=== PATIENT | male | born 1975 | race American Indian/Alaskan Native ===

== ENCOUNTER 2019-01-05 10:08 | Emergency (ER) | payer BC, OTHER ==
[2019-01-05 10:15] VITALS: BP 139/88
--- NOTE | 2019-01-05 11:23 | Emergency Department Report ---
HPI - General Chief Complaint: Sore Throat Time Seen by Provider: 01/05/19 11:07 - HPI HPI: 43-year-old male presents to the emergency department with the complaint of a sore throat, hoarse voice for the past 2-3 days. The patient is also here for a blood pressure check as he said that he checked his blood pressure in some pharmacy or department store recently and it read his blood pressure as high. He has not taken anything for her symptoms prior to presentation. No past medical history. He has a tobacco smoker but denies any illicit drug use. Patient says that when he wakes him from sleep he feels a lot of sinus congestion. No fever. No cough or shortness of breath. ED Past Medical Hx - Past Medical History Hx Asthma: Yes Additional medical history: c-spine herniation, lower back problems - Surgical History Hx Appendectomy: Yes Additional Surgical History: right foot surgery - Social History Smoking Status: Current Every Day Smoker Substance Use Type: None - Medications Home Medications: Home Medications Medication Instructions Recorded Confirmed Last Taken Type Amoxicillin 500 mg PO TID #30 tablet 06/14/14 Unknown Rx Ibuprofen [Motrin] 600 mg PO Q8H PRN #30 tablet 07/01/14 Unknown Rx Prednisone [Prednisone 10 mg 10 mg PO .TAPER #1 tab.ds.pk 07/01/14 Unknown Rx (6-Day Pack, 21 Tabs)] Promethazine /Codeine 5 ml PO Q6H PRN #90 ml 07/01/14 Unknown Rx [Phenergan/Codeine 6.25-10 mg/5 ml] Acetaminophen/Codeine [Tylenol 1 tab PO Q6H PRN #15 tab 05/06/15 Unknown Rx /Codeine # 3 tab] Penicillin Vk [Veetids TAB] 500 mg PO Q8H #30 tablet 05/06/15 Unknown Rx Ibuprofen [Motrin 800 MG tab] 800 mg PO Q8HR PRN #30 tablet 05/15/16 Unknown Rx Ondansetron [Zofran TAB] 4 mg PO Q8HR PRN #8 tablet 05/15/16 Unknown Rx Fluticasone [Flonase] 1 spray NS QDAY #1 bottle 01/05/19 Unknown Rx Loratadine [Claritin] 10 mg PO DAILY #15 tablet 01/05/19 Unknown Rx ED Review of Systems ROS: Stated complaint: SORE THROAT/BP CHECK Other details as noted in HPI Comment: All other systems reviewed and negative Constitutional: denies: chills, fever ENT: throat pain. denies: ear pain Respiratory: denies: cough, shortness of breath Cardiovascular: denies: chest pain, palpitations Skin: denies: rash, lesions Neurological: denies: headache, weakness Physical Exam - Physical Exam Vital Signs: Vital Signs 01/05/19 10:14 Temperature 98.3 F Pulse Rate 80 Respiratory 16 Rate Blood Pressure 139/88 O2 Sat by Pulse 100 Oximetry Physical Exam: GENERAL: The patient is well-developed well-nourished. HENT: Normocephalic. Atraumatic. Patient has moist mucous membranes. There is no tonsillar hypertrophy, erythema or exudates. Posterior pharynx is hypervascular with some postnasal drip seen. Boggy nasal mucosa. EYES: Extraocular motions are intact. NECK: Supple. Trachea is midline. CHEST/LUNGS: Clear to auscultation. There is no respiratory distress noted. HEART/CARDIOVASCULAR: Regular. There is no tachycardia. There is no murmur. ABDOMEN: There is no abdominal distention. SKIN: Skin is warm and dry. NEURO: The patient is awake, alert, and oriented. The patient is cooperative. The patient has no focal neurologic deficits. The patient has normal speech. MUSCULOSKELETAL: There is no tenderness or deformity. There is no evidence of acute injury. ED Course Vital Signs 01/05/19 10:14 Temperature 98.3 F Pulse Rate 80 Respiratory 16 Rate Blood Pressure 139/88 O2 Sat by Pulse 100 Oximetry ED Medical Decision Making - Medical Decision Making This patient presents to the emergency department with complaint of a few days of a sore throat. He has some hypervascularity to the posterior pharynx but otherwise there is no tonsillar hypertrophy, erythema or exudates. Rapid strep test was done that was negative. It is most likely secondary to postnasal drip. He will be placed on Flonase and Claritin. The patient also presents with some concern for his blood pressure. His blood pressure here today is reasonable. We discussed smoking cessation and some dietary and/or lifestyle changes to make. We discussed keeping a blood pressure log. He has been given some referrals for local primary care. - Differential Diagnosis strep pharyngitis, viral pharyngitis, allergic rhinitis Critical Care Time: No Critical care attestation.: If time is entered above; I have spent that time in minutes in the direct care of this critically ill patient, excluding procedure time. ED Disposition Clinical Impression: Pharyngitis Qualifiers: Pharyngitis/tonsillitis etiology: unspecified etiology Qualified Code(s): J02.9 - Acute pharyngitis, unspecified Disposition: DC- TO HOME OR SELFCARE Is pt being admited?: No Condition: Stable Instructions: Pharyngitis (ED) Additional Instructions: Please follow up with a primary care physician in the next few days. Return to the emergency Department with any worsening of your symptoms or any acute distress. Try to stay away from foods that are high in salt and caffeinated products. Keep a blood pressure log. Prescriptions: Loratadine [Claritin] 10 mg PO DAILY #15 tablet Fluticasone [Flonase] 1 spray NS QDAY #1 bottle Referrals: SAVANNAH MONTANEZ MD [Staff Physician] - 2-3 Days [facility] [Outside] - 2-3 Days Time of Disposition: 11:54
== END 2019-01-05 12:26 | disposition home or self-care (01) ==
LOC: ED 10:08
DX: J02.9 Acute pharyngitis, unspecified (principal); J45.909 Unspecified asthma, uncomplicated; F17.200 Nicotine dependence, unspecified, uncomplicated; Z79.1 Long term (current) use of non-steroidal anti-inflammatories (NSAID); Z79.899 Other long term (current) drug therapy
CPT/HCPCS: 87116; 87430; 99283

== ENCOUNTER 2019-03-27 10:54 | Emergency (ER) | payer OTHER ==
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
--- NOTE | 2019-03-27 12:55 | XRay Report ---
XR spine lumbosacral 2-3V INDICATION / CLINICAL INFORMATION: low back pain. COMPARISON: None available. FINDINGS: BONES/JOINT(S): No vertebral fracture. No significant degenerative changes. Overall normal alignment and bone mineralization. SOFT TISSUES: No significant abnormality. ADDITIONAL FINDINGS: None. Signer Name: Carson Giron MD Signed: 03/27/2019 12:50 PM Workstation Name: [id number]
[2019-03-27] MEDS ORDERED: KETOROLAC 30 MG/1 ML INJ IM ONE (13:47)
[2019-03-27 14:59] VITALS: BP 136/99
== END 2019-03-27 14:55 | disposition home or self-care (01) ==
LOC: ED 10:54
DX: S39.012A Strain of muscle, fascia and tendon of lower back, initial encounter (principal); M54.41 Lumbago with sciatica, right side; Z79.899 Other long term (current) drug therapy; X50.0XXA Overexertion from strenuous movement or load, initial encounter; Y93.89 Activity, other specified; Y92.098 Other place in other non-institutional residence as the place of occurrence of the external cause; Y99.8 Other external cause status
CPT/HCPCS: 72100; 96372; 99283; J1885

== ENCOUNTER 2019-04-21 08:22 | Emergency (ER) | payer OTHER ==
[2019-04-21 09:36] VITALS: BP 135/97
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
[2019-04-21 10:10] LABS: Bilirubin,Urine NEG (Negative); Blood,Urine NEG (Negative); Color,Urine Yellow (Yellow); Mucus,Urine FEW /HPF; Protein,Urine <15 mg/dL mg/dL (Negative); Urobilinogen,Urine < 2.0 mg/dL (<2.0); WBC,Urine < 1.0 /HPF (0.0-6.0)
== END 2019-04-21 10:30 | disposition home or self-care (01) ==
LOC: ED 08:22
DX: M54.5 Low back pain (principal); R10.9 Unspecified abdominal pain; F17.200 Nicotine dependence, unspecified, uncomplicated; J45.909 Unspecified asthma, uncomplicated; Z79.899 Other long term (current) drug therapy; Z90.89 Acquired absence of other organs; Z98.890 Other specified postprocedural states
CPT/HCPCS: 81001

== ENCOUNTER 2019-07-17 12:27 | Emergency (ER) | payer SELFPAY ==
--- NOTE | 2019-07-17 12:42 | Event Note ---
{null, ED Screening Note ED Screening Note: chest pain states it feels like a pressure/tension states he has tingling in the left arm states it began two weeks ago states he also has upper back pain no n/v/d no fever no SOB PMHx childhood asthma no allergies to meds This initial assessment/diagnostic orders/clinical plan/treatment(s) is/are subject to change based on patients health status, clinical progression and re- assessment by fellow clinical providers in the ED. Further treatment and workup at subsequent clinical providers discretion. Patient/guardian urged not to elope from the ED as their condition may be serious if not clinically assessed and managed. Initial orders include: cp protocol }
[2019-07-17 13:31] LABS: Basophils # (Auto) 0.1 K/mm3 (0.0-0.1); Basophils % (Auto) 0.7 % (0.0-1.8); Eosinophils # (Auto) 0.3 K/mm3 (0.0-0.4); Eosinophils % (Auto) 3.6 % (0.0-4.3); Hematocrit 42.4 % (35.5-45.6); Hemoglobin 13.9 gm/dl (11.8-15.2); Lymphocytes # (Auto) 2.9 K/mm3 (1.2-5.4); Lymphocytes % (Auto) 31.6 % (13.4-35.0); Mean Corpuscular HGB Conc 33 % (32-34); Mean Corpuscular Volume 87 fl (84-94); Monocytes # (Auto) 0.9 K/mm3 (0.0-0.8); Monocytes % (Auto) 10.1 % (0.0-7.3); Platelet Count 242 K/mm3 (140-440); Red Cell Distribution Width 13.2 % (13.2-15.2)
--- NOTE | 2019-07-17 13:49 | XRay Report ---
{null, CHEST 2 VIEWS INDICATION: CP. COMPARISON: None FINDINGS: Support devices: None. Heart: Within normal limits. Lungs/pleura: No acute air space or interstitial disease. No pneumothorax. Additional findings: None. IMPRESSION: 1. No acute findings. Signer Name: Víctor Castano MD Signed: 07/17/2019 1:44 PM Workstation Name: [id number] }
[2019-07-17 13:50] LABS: Alanine Aminotransferase 34 units/L (7-56); Albumin 4.2 g/dL (3.9-5); BUN/Creatinine Ratio 18; Blood Urea Nitrogen 14 mg/dL (9-20); Calcium 9.1 mg/dL (8.4-10.2); Hemolysis Index 10
--- NOTE | 2019-07-17 14:01 | Emergency Department Report ---
{null, ED Chest Pain HPI - General Chief Complaint: Chest Pain Stated Complaint: CP ON RIGHT SIDE Time Seen by Provider: 07/17/19 12:40 Source: patient Mode of arrival: Ambulatory Limitations: No Limitations - History of Present Illness Initial Comments: This is a 44-year-old -Spanish male who presents to the emergency room with left-sided chest pain radiating to left upper extremity for 2 weeks. Patient reports pain as a pressure intensity that is worse with movement. 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 Past medical history of asthma and chronic low back pain. He denies palpitations, shortness of breath, edema, nausea, vomiting, wheezing, fever, or chills. MD Complaint: chest pain Onset/Timin -: week(s) Pain Location: left chest Pain Radiation: LUE Severity: moderate Severity scale (0 -10): 6 Quality: pressure Consistency: intermittent Improves With: nothing Worsens With: movement re: denies: nausea, vomting, diaphoresis, dyspnea, sense of impending doom Other Symptoms: denies: cough, fever, syncope, rash, acid taste in mouth, leg swelling, palpitations, burping Treatments Prior to Arrival: none Aspirin use within the Past 7 Days: (0) No - Related Data Previous Rx's Medication Instructions Recorded Last Taken Type Amoxicillin 500 mg PO TID #30 tablet 06/14/14 Unknown Rx Ibuprofen [Motrin] 600 mg PO Q8H PRN #30 tablet 07/01/14 Unknown Rx Prednisone [Prednisone 10 mg 10 mg PO .TAPER #1 tab.ds.pk 07/01/14 Unknown Rx (6-Day Pack, 21 Tabs)] Promethazine /Codeine 5 ml PO Q6H PRN #90 ml 07/01/14 Unknown Rx [Phenergan/Codeine 6.25-10 mg/5 ml] Acetaminophen/Codeine [Tylenol 1 tab PO Q6H PRN #15 tab 05/06/15 Unknown Rx /Codeine # 3 tab] Penicillin Vk [Veetids TAB] 500 mg PO Q8H #30 tablet 05/06/15 Unknown Rx Ondansetron [Zofran TAB] 4 mg PO Q8HR PRN #8 tablet 05/15/16 Unknown Rx Fluticasone [Flonase] 1 spray NS QDAY #1 bottle 01/05/19 Unknown Rx Loratadine (Nf) [Claritin] 10 mg PO DAILY #15 tablet 01/05/19 Unknown Rx Ibuprofen [Motrin 800 MG tab] 800 mg PO Q8HR PRN #30 tablet 03/27/19 Unknown Rx methOCARBAMOL [Robaxin TAB] 500 mg PO BID PRN #20 tab 03/27/19 Unknown Rx Ibuprofen [Motrin 800 MG tab] 800 mg PO Q8HR PRN #30 tablet 07/17/19 Unknown Rx Allergies Allergy/AdvReac Type Severity Reaction Status Date / Time No Known Allergies Allergy Verified 01/05/19 10:10 Heart Score - HEART Score History: Slightly suspicious EKG: Normal Age: < 45 Risk factors: 1-2 risk factors Troponin: < normal limit HEART Score: 1 - Critical Actions Critical Actions: 0-3 pts:0.9-1.7%risk of adverse cardiac event.Candidate for discharge ED Review of Systems ROS: Stated complaint: CP ON RIGHT SIDE Other details as noted in HPI ED Past Medical Hx - Past Medical History Hx Asthma: Yes Additional medical history: c-spine herniation, lower back problems - Surgical History Hx Appendectomy: Yes Additional Surgical History: right foot surgery, Hemorrhoid banding - Social History Smoking Status: Current Every Day Smoker Substance Use Type: Alcohol, Marijuana - Medications Home Medications: Home Medications Medication Instructions Recorded Confirmed Last Taken Type Amoxicillin 500 mg PO TID #30 tablet 06/14/14 Unknown Rx Ibuprofen [Motrin] 600 mg PO Q8H PRN #30 tablet 07/01/14 Unknown Rx Prednisone [Prednisone 10 mg 10 mg PO .TAPER #1 tab.ds.pk 07/01/14 Unknown Rx (6-Day Pack, 21 Tabs)] Promethazine /Codeine 5 ml PO Q6H PRN #90 ml 07/01/14 Unknown Rx [Phenergan/Codeine 6.25-10 mg/5 ml] Acetaminophen/Codeine [Tylenol 1 tab PO Q6H PRN #15 tab 05/06/15 Unknown Rx /Codeine # 3 tab] Penicillin Vk [Veetids TAB] 500 mg PO Q8H #30 tablet 05/06/15 Unknown Rx Ondansetron [Zofran TAB] 4 mg PO Q8HR PRN #8 tablet 05/15/16 Unknown Rx Fluticasone [Flonase] 1 spray NS QDAY #1 bottle 01/05/19 Unknown Rx Loratadine (Nf) [Claritin] 10 mg PO DAILY #15 tablet 01/05/19 Unknown Rx Ibuprofen [Motrin 800 MG tab] 800 mg PO Q8HR PRN #30 tablet 03/27/19 Unknown Rx methOCARBAMOL [Robaxin TAB] 500 mg PO BID PRN #20 tab 03/27/19 Unknown Rx Ibuprofen [Motrin 800 MG tab] 800 mg PO Q8HR PRN #30 tablet 07/17/19 Unknown Rx ED Physical Exam - General Limitations: No Limitations General appearance: alert, in no apparent distress, obese - ENT ENT exam: Present: mucous membranes moist - Respiratory Respiratory exam: Present: normal lung sounds bilaterally, chest wall tenderness (Tenderness along costochondral joints bilaterally, no erythema or swelling). Absent: respiratory distress, wheezes, rales, rhonchi, stridor, accessory muscle use, decreased breath sounds, prolonged expiratory - Cardiovascular Cardiovascular Exam: Present: regular rate, normal rhythm. Absent: systolic murmur, diastolic murmur, rubs, gallop - GI/Abdominal GI/Abdominal exam: Present: soft, normal bowel sounds. Absent: distended, tenderness, guarding, rebound, rigid - Extremities Exam Extremities exam: Present: normal inspection - Neurological Exam Neurological exam: Present: alert, oriented X3, normal gait - Psychiatric Psychiatric exam: Present: normal affect, normal mood - Skin Skin exam: Present: warm, dry, intact, normal color. Absent: rash ED Course Vital Signs 07/17/19 12:41 Temperature 98.5 F Pulse Rate 63 Respiratory 20 Rate Blood Pressure 160/100 [Right] O2 Sat by Pulse 97 Oximetry ED Medical Decision Making - Lab Data Result diagrams: 07/17/19 12:58 07/17/19 12:58 Lab Results 07/17/19 07/17/19 07/17/19 Range/Units 12:58 12:58 15:15 WBC 9.0 (4.5-11.0) K/mm3 RBC 4.90 (3.65-5.03) M/mm3 Hgb 13.9 (11.8-15.2) gm/dl Hct 42.4 (35.5-45.6) % MCV 87 (84-94) fl MCH 29 (28-32) pg MCHC 33 (32-34) % RDW 13.2 (13.2-15.2) % Plt Count 242 (140-440) K/mm3 Lymph % (Auto) 31.6 (13.4-35.0) % [place] % (Auto) 10.1 H (0.0-7.3) % Eos % (Auto) 3.6 (0.0-4.3) % Baso % (Auto) 0.7 (0.0-1.8) % Lymph # 2.9 (1.2-5.4) K/mm3 [place] # 0.9 H (0.0-0.8) K/mm3 Eos # 0.3 (0.0-0.4) K/mm3 Baso # 0.1 (0.0-0.1) K/mm3 Seg Neutrophils % 54.0 (40.0-70.0) % Seg Neutrophils # 4.9 (1.8-7.7) K/mm3 Sodium 139 (137-145) mmol/L Potassium 4.1 (3.6-5.0) mmol/L Chloride 103.4 (98-107) mmol/L Carbon Dioxide 22 (22-30) mmol/L Anion Gap 18 mmol/L BUN 14 (9-20) mg/dL Creatinine 0.8 (0.8-1.5) mg/dL Estimated GFR > 60 ml/min BUN/Creatinine Ratio 18 % Glucose 92 (75-100) mg/dL Calcium 9.1 (8.4-10.2) mg/dL Total Bilirubin 0.30 (0.1-1.2) mg/dL AST 21 (5-40) units/L ALT 34 (7-56) units/L Alkaline Phosphatase 86 (35-129) units/L Troponin T < 0.010 < 0.010 (0.00-0.029) ng/mL Total Protein 6.6 (6.3-8.2) g/dL Albumin 4.2 (3.9-5) g/dL Albumin/Globulin Ratio 1.8 % - EKG Data -: No EKG Interpreted by Me (EKG interpreted by attending) EKG shows normal: sinus rhythm Rate: normal - EKG Data When compared to previous EKG there are: previous EKG unavailable - Radiology Data Radiology results: report reviewed Chest x-ray impression: No acute findings. - Medical Decision Making 44 y.o. female that presents with left-sided chest pain. Vitals are stable and patient in no acute distress. Past medical history of asthma. Denies drug use, SOB, palpations, fever, or dyspnea. Work-up: CMP, CBC, troponin, EKG, and chest xray. Troponins x2 negative, all other labs are unremarkable. Chest x- ray negative for acute cardiopulmonary findings. Heart score 1. EKG no overt evidence of STEMI. There was reproducible pain bilateral costochondral joints with palpation. Given NSAIDs. Due to work-up and exam there is low suspicion for acute coronary syndrome, pulmonary embolus, pneumothorax, or aortic dissection, or other emergent problems. Patient's pain was controlled prior to discharge and well appearing. Start NSAIDs. Referrals given for cardiology and PCP for continued care. Discharged home stable. Follow up with PCP and cardiology in 24-48 hours. Given strict return instructions. Critical care attestation.: If time is entered above; I have spent that time in minutes in the direct care of this critically ill patient, excluding procedure time. ED Disposition Clinical Impression: Costochondral chest pain Chest pain Qualifiers: Chest pain type: other chest pain Qualified Code(s): R07.89 - Other chest pain; R07.8 - Other chest pain Disposition: - TO HOME OR SELFCARE Is pt being admited?: No Condition: Stable Instructions: Chest Pain (ED), Costochondritis (ED) Additional Instructions: Take anti-inflammatory pain medication every 6-8 hours as needed for pain. Follow-up with a supervisor crack off from the list provided below. I have also provided a list of primary care doctors for you to follow-up with. Return to the emergency room if worsening symptoms such as palpitations, uncontrolled c hest pain, shortness of breath, radiating pain, or nausea or vomiting. Prescriptions: Ibuprofen [Motrin 800 MG tab] 800 mg PO Q8HR PRN #30 tablet PRN Reason: Pain Referrals: ANURADHA HADLEY MD [Staff Physician] - 3-5 Days [facility] [Provider Group] - 3-5 Days [facility] [Provider Group] - 3-5 Days Forms: Work/School Release Form(ED) Time of Disposition: 16:29 }
[2019-07-17] MEDS ORDERED: IBUPROFEN 800 MG TAB PO ONE (14:09)
[2019-07-17 17:25] VITALS: BP 136/107
== END 2019-07-17 17:24 | disposition home or self-care (01) ==
LOC: ED 12:27
DX: M94.0 Chondrocostal junction syndrome [Tietze] (principal); J45.909 Unspecified asthma, uncomplicated; F17.200 Nicotine dependence, unspecified, uncomplicated; F12.10 Cannabis abuse, uncomplicated; Z98.890 Other specified postprocedural states; Z90.49 Acquired absence of other specified parts of digestive tract; Z79.1 Long term (current) use of non-steroidal anti-inflammatories (NSAID); Z79.899 Other long term (current) drug therapy
CPT/HCPCS: 36415; 71046; 80053; 84484; 85025; 93005; 93010